=== PATIENT | male | born 1990 | race Hispanic/Latino ===

== ENCOUNTER 2020-07-11 21:10 | Emergency (ER) | payer OTHER ==
[~2020-07-11] VITALS: Ht 185.4 cm; Wt 95.5 kg
[2020-07-11] MEDS ORDERED: ONDANSETRON 4MG/2ML VIAL IV ONE (21:45)
[2020-07-11] MEDS ORDERED: NS 1,000 ML IV ONE (21:45)
[2020-07-11 22:08] LABS: BASO % 0.5 % (0.0-1.0); HEMATOCRIT 45.4 % (42.0-52.0); HEMOGLOBIN 14.7 g/dl (13.5-17.5); LYMPH # 0.8 10^3/uL (1.5-5.0); LYMPH % 19.8 % (24.0-44.0); MEAN CORPUSCULAR HEMOGLOBIN 30.9 pg (27.0-33.0); MEAN CORPUSCULAR HGB CONC 32.4 g/dl (32.0-36.5); MEAN CORPUSCULAR VOLUME 95.6 fl (80.0-96.0); MONO # 0.4 10^3/uL (0.0-0.8); MONO % 8.6 % (0.0-5.0); NEUTROPHILS # 2.9 10^3/uL (1.5-8.5); NEUTROPHILS % 70.4 % (36.0-66.0); PLATELET COUNT, AUTOMATED 167 10^3/uL (150-450); RED BLOOD COUNT 4.75 10^6/uL (4.30-6.10); WHITE BLOOD COUNT 4.1 10^3/uL (4.0-10.0)
[2020-07-11 22:17] LABS: INR 1.08; PARTIAL THROMBOPLASTIN TIME 25.4 SECONDS (24.2-38.5); PROTHROMBIN TIME 14.2 SECONDS (12.5-14.3)
[2020-07-11 22:20] LABS: D-DIMER QUANT 588.23 ng/ml (<500)
[2020-07-11 22:29] LABS: ALBUMIN 4.1 GM/DL (3.2-5.2); ALT/SGPT 20 U/L (12-78); BILIRUBIN,TOTAL 0.2 MG/DL (0.2-1.0); BLOOD UREA NITROGEN 13 MG/DL (7-18); CARBON DIOXIDE LEVEL 30 MEQ/L (21-32); CHLORIDE LEVEL 109 MEQ/L (98-107); CK-MB VALUE MASS 1.2 NG/ML (<3.6); CPK CREATINE PHOSPHOKINASE 575 U/L (39-308); CREATININE FOR GFR 1.42 MG/DL (0.70-1.30); FERRITIN 87 NG/ML (26-388); GLOMERULAR FILTRATION RATE > 60.0 (>60); GLUCOSE, FASTING 90 MG/DL (70-100); LDH LACTATE DEHYDROGENASE 181 U/L (87-241); MAGNESIUM LEVEL 2.1 MG/DL (1.8-2.4); MB/CK RELATIVE INDEX 0.21 (< OR =4); POTASSIUM SERUM 4.3 MEQ/L (3.5-5.1); SODIUM LEVEL 141 MEQ/L (136-145); TOTAL PROTEIN 7.1 GM/DL (6.4-8.2); TROPONIN I < 0.02 NG/ML (< 0.10)
--- NOTE | 2020-07-11 23:31 | REPVR ---
PROCEDURE INFORMATION: Exam: XR Chest, 1 View Exam date and time: 07/11/2020 11:21 PM Age: 29 years old Clinical indication: Shortness of breath; Additional info: Coronavirus workup TECHNIQUE: Imaging protocol: XR of the chest Views: 1 view. COMPARISON: No relevant prior studies available. FINDINGS: Lungs: Unremarkable. No consolidation. Pleural space: Unremarkable. No pleural effusion. No pneumothorax. Heart/Mediastinum: Unremarkable. No cardiomegaly. Bones/joints: Unremarkable. IMPRESSION: Negative chest. Electronically signed by: Niraj Melgoza On 07/11/2020 23:31:27 PM
[2020-07-11 23:57] VITALS: BP 128/71
--- NOTE | 2020-07-12 08:58 | ECGEPIP ---
[facility] - ED Test Date: 2020-07-11 Pat Name: PATRIZIA HILL Department: Room: - Gender: Male [employer]: : [id number] Requested By: BERTO BECKER Order Number: [id number] Reading MD: Linda Bagley Measurements Intervals [place] Rate: 92 P: 50 OR: 142 QRS: 44 QRSD: 96 T: 12 QT: 313 QTc: 389 Interpretive Statements SINUS RHYTHM POSSIBLE RIGHT VENTRICULAR CONDUCTION DELAY No prior Electronically Signed on 07-12-2020 8:58:03 EST by Linda Bagley
== END 2020-07-11 23:58 | disposition home or self-care (01) ==
LOC: EEVIPCON 21:10 → M ED 21:10
DX: U07.1 COVID-19 (principal); R06.02 Shortness of breath